=== PATIENT | female | born 2000 | race Caucasian/White ===

== ENCOUNTER 2023-02-03 07:27 | Inpatient (IN) ==
--- NOTE | 2023-02-03 07:45 | History & Physical Report ---
Date of Service February 03, 2023 Assessment & Plan (1) Encounter for induction of labor: (2) Gestational diabetes: (3) Hepatitis B surface antigen positive: (4) Hypothyroidism: Plan Will admit patient to L&D for induction of labor Patient comfortable. VSS. 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 She is getting regular f/u for this with icer hand. She is currently at IUP 39 3/7 WGA with an IMER 02/07/23 as determined by uncertain LMP (IMER of 01/29/23 +/- 21 days by Ultrasound) who is here for IOL due to diet-controlled GDM and obesity affecting (BMI > 40). She had a Meyers balloon placed in OB clinic yesterday, which fell out this morning after arriving at L&D (+) movement (-) contractions (-) fluid loss (-) bloody show External FHT and external uterine monitors used * Category 1 tracing * Moderate FHT variability. Had regular appointments since 1st trimester. OB Labs: Blood Type O Negative 07/31/22 Antibody Screen NEGATIVE 11/16/22 Hemoglobin 11.4 g/dl (12.0-16.0) L 11/16/22 Hematocrit 33.8 % (37.0-47.0) L 11/16/22 Mean Corpuscular Volume 82.0 fL (80.0-100.0) 07/31/22 Platelet Count 221 K/uL (130-400) 07/31/22 Rubella IgG Antibody Immune (Immune) 07/13/22 Rapid Plasma Reagin Nonreactive (Nonreactive) 07/13/22 Hepatitis B Surface Antigen. NON-REACTIVE (NON-REACTIVE) 07/13/22 Hepatitis C Antibody (EIA) NON-REACTIVE (NON-REACTIVE) 07/13/22 HIV (1&2) Ag and Ab Confirmation NON-REACTIVE (NON-REACTIVE) 07/13/22 Maternal Serum Alpha Fetoprotein 21.7 ng/mL 08/24/22 OB Optional Labs: Chlamydia trachomatis RNA Not Detected (NotDetected) 07/13/22 Neisseria gonorrhoeae RNA Not Detected (NotDetected) 07/13/22 Thyroid Stimulating Hormone (TSH) 1.868 uIu/ml (0.300-4.500) 01/26/23 Alpha Fetoprotein Triple Screen SEE NOTE 08/24/22 Labs Reviewed: low risk cfdna neg cf/sma afp neg GBS neg Rh neg Rhogam given 07/31/22 in ED - spotting rhogam given 11/16/22 Allergies Allergy/AdvReac Type Severity Reaction Status Date / Time No Known Allergies Allergy Verified 02/03/23 08:35 Home Medications Medication Instructions Recorded Confirmed Type prenat.vits,nam,rmw-etod-ahqks 1 tab PO DAILY 07/06/22 02/03/23 History acetone (urine) test (Ketone Urine #50 ea 09/13/22 02/02/23 Rx Test strips) blood sugar diagnostic (OneTouch #150 ea 09/13/22 02/02/23 Rx Verio test strips) blood-glucose meter (OneTouch #1 ea 09/13/22 02/02/23 Rx Verio Reflect Meter) lancets 33 gauge #150 ea 09/13/22 02/02/23 Rx levothyroxine 175 mcg tablet 175 mcg PO DAILY #90 tabs 10/29/22 02/03/23 Rx aspirin 81 mg capsule 81 mg PO DAILY 02/02/23 02/03/23 History Patient History Medical History Hemorrhagic nasal discharge History of COVID-19 Morbid obesity Nasal hemorrhage Ovarian cyst, right Prediabetes Surgical History H/O wisdom tooth extraction History of placement of ear tubes S/P ovarian cystectomy S/P tonsillectomy and adenoidectomy Family History Grandmother (Paternal) Cardiac disorder Hypertension Father Hypertension Unknown Breast cancer Other No family history of adverse response to anesthesia Denies family history of Ovarian cancer Colorectal cancer Social History Smoking Status: Never smoker Second Hand Exposure: No; Do You Dip or Chew Tobacco: No; Hx Alcohol Use: No Hx Substance Use: No Preferred Language: [place]ian Communication Ability: Effective Visual Impairment: Partially Limited Meter Attendant Required: No Beliefs That Will Affect Care: None marital status: Single marital status details: Heidy Block - Mother- [phone] Current Living Situation: Significant Other Current Living Situation Comment: lives with [place] current occupational status: employed current occupation: [employer] Other Information That Helps Us Care for You: No Feels Safe at Home: Yes Safety Concerns: Feels Safe At This Time 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 Denies shortness of breath or respiratory difficulty. no chest pain and no palpitations no dysuria no headache(s) Physical Exam Physical Exam: General: Alert, oriented x3. Afebrile. No acute distress. Cardiac: Regular rate and rhythm. Respiratory: No increased work of breathing. Symmetrical chest rise. No respiratory distress. Abdomen: Gravid; FHR baseline 150-155 bpm; Position: Cephalic Pelvic: 4 / 70 / -[address] Vyas Supervising Physician Co-Signing Physician Notes Resident Physician Supervision Note: I was present with Dr. Nunez during the history and exam. I discussed the case with the resident and agree with the findings and plan as documented in the note. Any exceptions or clarifications are listed here: 22yo @ 39 3/, IOL for obesity, with GDM, Hep B +, hypothyroidism. Mira fell out this mo rning. Cervix 4/70/-2, soft/mid. Will start pitocin. Hourly glucose checks while in labor. FHT Cat 1 [place] rare. She is agreeable with plan. OK for epidural when she desires. Documented By: Shavonne Vyas DO Resident Activity Tracking Resident Involvement: Resident Care Provided Care Provided: OB Delivery
[2023-02-03] MEDS ORDERED: OXYTOCIN 30 UNITS/500 ML BAG IV PRN ×2 (07:58)
[2023-02-03] MEDS ORDERED: LIDOCAINE 1% LOCAL 20 ML VIAL INFIL PRN (07:58)
[2023-02-03 08:42] LABS: Hemoglobin 11.2 g/dl (12.0-16.0); Mean Corpuscular Hemoglobin 27.5 pg (25.0-34.0); Mean Corpuscular Hgb Conc 33.9 g/dL (32.0-36.0); Mean Corpuscular Volume 80.9 fL (80.0-100.0); Mean Platelet Volume 9.3 fL (9.4-12.4); Platelet Count 228 K/uL (130-400); RDW Coefficient of Variation 15.1 % (11.5-14.5); RDW Standard Deviation 43.8 fL (36.4-46.3); Red Blood Count 4.08 M/uL (4.20-5.40); White Blood Count 12.16 K/ul (4.8-10.8)
[2023-02-03] MEDS: LACTATED RINGER'S 1,000 ML IV PRN ×3 (10:11→20:15)
[2023-02-03] MEDS ORDERED: SODIUM CHLORIDE 0.9% PF INJ 10 ML VIAL ONE (11:54)
[2023-02-03] MEDS ORDERED: fentaNYL citrate PF 100 MCG/2 ML VIAL ONE (11:54)
[2023-02-03] MEDS ORDERED: ePHEDrine sulfate 50 MG/ML AMP ONE (11:54)
[2023-02-03] MEDS ORDERED: BUPIVACAINE 0.25% PF 30 ML VIAL ONE (11:55)
[2023-02-03] MEDS ORDERED: fentANYL 2 MCG/ML BUPIVacaine 0.125%-NSS 100ML BAG ONE ×2 (11:55→21:01)
[2023-02-03] MEDS ORDERED: LIDOCAINE 2%/EPINEPHRINE 1:200,000 20 ML PF ONE (11:55)
[2023-02-03] MEDS ORDERED: ROPIVACAINE 0.5% PF 5 MG/ML 20 ML VIAL EPI PRN (12:45)
[2023-02-03] MEDS ORDERED: ePHEDrine sulfate 50 MG/ML AMP IV PRN (12:45)
[2023-02-03] MEDS ORDERED: fentaNYL citrate PF 100 MCG/2 ML VIAL EPI PRN (12:45)
[2023-02-03] MEDS ORDERED: ONDANSETRON INJ 2 MG/ML 2 ML VIAL IV PRN (12:45)
[2023-02-03] MEDS ORDERED: BUPIVACAINE 0.25% PF 30 ML VIAL EPI PRN (12:45)
[2023-02-03] MEDS ORDERED: BUPIVACAINE 0.25% PF 30 ML VIAL EPI STA (12:45)
[2023-02-03] MEDS ORDERED: fentANYL 2 MCG/ML BUPIVacaine 0.125%-NSS 100ML BAG EPI PRN (12:45)
[2023-02-03] MEDS ORDERED: LIDOCAINE 2%/EPINEPHRINE 1:200,000 20 ML PF EPI STA (12:45)
[2023-02-03] MEDS ORDERED: SODIUM CHLORIDE 0.9% PF INJ 10 ML VIAL EPI PRN (12:45)
[2023-02-03] MEDS ORDERED: NALOXONE HCL 1 MG in SODIUM CHLORIDE 0.9% 1,000 ML IV PRN (12:45)
[2023-02-03] MEDS ORDERED: fentaNYL citrate PF 100 MCG/2 ML VIAL EPI STA (12:45)
[2023-02-03] MEDS ORDERED: NALOXONE HCL 0.4 MG/1 ML VIAL/CARP IV PRN (12:45)
[2023-02-03] MEDS ORDERED: LIDOCAINE 2% MPF LOCAL 5 ML VIAL EPI PRN (12:45)
[2023-02-03] MEDS ORDERED: NALBUPHINE HCL 5 MG in SYRINGE 0 ML IV PRN (12:45)
[2023-02-03] MEDS ORDERED: SODIUM CHLORIDE 0.9% PF INJ 10 ML VIAL EPI STA (12:45)
[2023-02-03] MEDS ORDERED: diphenhydrAMINE 50 MG/ML VIAL IV PRN (12:45)
--- NOTE | 2023-02-03 18:11 | Labor Progress Brief Note ---
Date of Service February 03, 2023 Subjective Comfortable with epidural. FHT Cat 1 [place] Q 2 SVE 5/80/-2 AROM clear fluid. Continue labor. Assessment & Plan Admission and Anticipated Discharge Date Admission Date: February 03, 2023 Results & Data Vital Signs (Past 12 Hours) Vital Signs Temp Pulse Resp BP Pulse Ox 02/03/23 18:08 93 H 02/03/23 18:03 99 02/03/23 18:03 85 02/03/23 17:58 99 02/03/23 17:58 83 02/03/23 17:56 81 02/03/23 17:56 131/71 02/03/23 17:53 99 02/03/23 17:53 84 02/03/23 17:48 99 02/03/23 17:48 86 02/03/23 17:43 99 02/03/23 17:43 94 H 02/03/23 17:42 86 02/03/23 17:42 128/78 02/03/23 17:38 99 02/03/23 17:38 91 H 02/03/23 17:33 99 02/03/23 17:33 91 H 02/03/23 17:28 100 02/03/23 17:28 91 H 02/03/23 17:27 86 02/03/23 17:27 154/90 H 02/03/23 17:23 100 02/03/23 17:23 115 H 02/03/23 17:18 99 02/03/23 17:18 81 02/03/23 17:13 99 02/03/23 17:13 86 02/03/23 17:12 92 H 02/03/23 17:12 135/84 02/03/23 17:08 100 02/03/23 17:08 93 H 02/03/23 17:03 99 02/03/23 17:03 100 H 02/03/23 16:58 100 02/03/23 16:58 83 02/03/23 16:56 20 02/03/23 16:56 20 02/03/23 16:56 82 02/03/23 16:56 137/82 02/03/23 16:53 100 02/03/23 16:53 99 H 02/03/23 16:48 100 02/03/23 16:48 88 02/03/23 16:43 100 02/03/23 16:43 100 H 02/03/23 16:42 92 H 02/03/23 16:42 130/88 02/03/23 16:38 99 02/03/23 16:38 90 02/03/23 16:33 99 02/03/23 16:33 105 H 02/03/23 16:28 100 02/03/23 16:28 90 02/03/23 16:26 90 02/03/23 16:26 133/71 02/03/23 16:23 100 02/03/23 16:23 88 02/03/23 16:18 100 02/03/23 16:18 88 02/03/23 16:13 100 02/03/23 16:13 93 H 02/03/23 16:11 93 H 02/03/23 16:11 139/69 02/03/23 16:08 100 02/03/23 16:08 107 H 02/03/23 16:03 100 02/03/23 16:03 81 02/03/23 15:58 100 02/03/23 15:58 93 H 02/03/23 15:55 18 02/03/23 15:55 18 02/03/23 15:55 83 02/03/23 15:55 125/66 02/03/23 15:53 100 02/03/23 15:53 87 02/03/23 15:48 99 02/03/23 15:48 81 02/03/23 15:43 99 02/03/23 15:43 84 02/03/23 15:40 75 02/03/23 15:40 120/61 02/03/23 15:38 100 02/03/23 15:38 96 H 02/03/23 15:33 100 02/03/23 15:33 77 02/03/23 15:28 100 02/03/23 15:28 92 H 02/03/23 15:25 93 H 02/03/23 15:25 114/58 L 02/03/23 15:23 100 02/03/23 15:23 75 02/03/23 15:18 100 02/03/23 15:18 84 02/03/23 15:13 100 02/03/23 15:13 81 02/03/23 15:11 82 02/03/23 15:11 124/72 02/03/23 15:08 100 02/03/23 15:08 76 02/03/23 15:03 100 02/03/23 15:03 77 02/03/23 14:58 100 02/03/23 14:58 86 02/03/23 14:57 20 02/03/23 14:57 36.5 C 20 02/03/23 14:57 78 02/03/23 14:57 123/62 02/03/23 14:53 100 02/03/23 14:53 73 02/03/23 14:48 100 02/03/23 14:48 85 02/03/23 14:43 100 02/03/23 14:43 86 02/03/23 14:42 75 02/03/23 14:42 122/65 02/03/23 14:38 100 02/03/23 14:38 81 02/03/23 14:33 100 02/03/23 14:33 78 02/03/23 14:28 100 02/03/23 14:28 89 02/03/23 14:25 86 02/03/23 14:25 100/58 L 02/03/23 14:23 100 02/03/23 14:23 77 02/03/23 14:18 100 02/03/23 14:18 73 02/03/23 14:13 100 02/03/23 14:13 73 02/03/23 14:11 78 02/03/23 14:11 104/58 L 02/03/23 14:08 100 02/03/23 14:08 91 H 02/03/23 14:03 100 02/03/23 14:03 78 02/03/23 13:58 100 02/03/23 13:58 71 02/03/23 13:57 18 02/03/23 13:57 18 02/03/23 13:57 75 02/03/23 13:57 112/63 02/03/23 13:53 100 02/03/23 13:53 77 02/03/23 13:48 100 02/03/23 13:48 85 02/03/23 13:43 100 02/03/23 13:43 152 H 02/03/23 13:41 86 02/03/23 13:41 108/64 02/03/23 13:38 100 02/03/23 13:38 97 H 02/03/23 13:33 100 02/03/23 13:33 71 02/03/23 13:28 100 02/03/23 13:28 71 02/03/23 13:27 67 02/03/23 13:27 125/65 02/03/23 13:23 100 02/03/23 13:23 74 02/03/23 13:18 100 02/03/23 13:18 75 02/03/23 13:13 100 02/03/23 13:13 73 02/03/23 13:11 83 02/03/23 13:11 102/55 L 02/03/23 13:08 100 02/03/23 13:08 76 02/03/23 13:03 100 02/03/23 13:03 75 02/03/23 12:58 100 02/03/23 12:58 94 H 02/03/23 12:55 18 02/03/23 12:55 18 02/03/23 12:55 92 H 02/03/23 12:55 116/65 02/03/23 12:53 100 02/03/23 12:53 84 02/03/23 12:53 88 02/03/23 12:53 119/62 02/03/23 12:48 100 02/03/23 12:48 90 02/03/23 12:45 89 02/03/23 12:45 120/59 L 02/03/23 12:43 100 02/03/23 12:43 93 H 02/03/23 12:43 136/67 02/03/23 12:41 81 02/03/23 12:41 133/77 02/03/23 12:39 86 02/03/23 12:39 139/80 02/03/23 12:38 100 02/03/23 12:38 91 H 02/03/23 12:37 91 H 02/03/23 12:37 138/83 02/03/23 12:33 100 02/03/23 12:33 97 H 02/03/23 12:28 98 02/03/23 12:28 94 H 02/03/23 12:23 100 02/03/23 12:23 86 02/03/23 12:18 98 02/03/23 12:18 77 02/03/23 11:00 18 02/03/23 11:00 36.5 C 18 02/03/23 11:00 81 02/03/23 11:00 112/71 02/03/23 08:02 107 H 02/03/23 08:02 137/81 02/03/23 07:40 36.7 C 18 02/03/23 07:38 36.7 C 123 H 18 133/88 Coding Level of Care Code None
--- NOTE | 2023-02-03 18:54 | Anesthesiology Consultation ---
Date of Service February 03, 2023 Assessment & Plan Chart Review Chart Review: Patient NOT seen in Pre Admission Testing and Acceptable Risk for Labor Epidural Consults Requested none ASA ASA2 Proposed Anesthesia Anesthesia Type: Labor Epidural Risk / Benefits Reviewed With: PT / POA / Parent / Guardian, Accepts Plan and Informed Consent Obtained History Height/Weight Height: 5 ft 9 in Weight: 140.614 kg Allergies Allergy/AdvReac Type Severity Reaction Status Date / Time No Known Allergies Allergy Verified 02/03/23 08:35 Medications Home Medications Medication Instructions Recorded Confirmed Last Taken prenat.vits,nam,vuo-dzgh-wegyc 1 tab PO DAILY 07/06/22 02/03/23 02/02/23 acetone (urine) test (Ketone Urine #50 ea 09/13/22 02/02/23 Unknown Test strips) blood sugar diagnostic (OneTouch #150 ea 09/13/22 02/02/23 Unknown Verio test strips) blood-glucose meter (OneTouch #1 ea 09/13/22 02/02/23 Unknown Verio Reflect Meter) lancets 33 gauge #150 ea 09/13/22 02/02/23 Unknown levothyroxine 175 mcg tablet 175 mcg PO DAILY #90 tabs 10/29/22 02/03/23 02/02/23 aspirin 81 mg capsule 81 mg PO DAILY 02/02/23 02/03/23 02/02/23 Active Medications Generic Name Dose Route Start Last Admin Trade Name Freq PRN Reason Stop Dose Admin Oxytocin 30 units in 500 mls @ 17 mls/hr 02/03/23 07:58 02/03/23 16:00 Pitocin IV 02/05/23 07:57 1.02 units/hr .Q24H PRN 17 mls/hr Labor Induction/Augmentation Titration Protocol 1.02 UNITS/HR Lactated Ringer's 1,000 mls @ 125 mls/hr 02/03/23 07:58 02/03/23 12:37 Lr IV 02/05/23 07:57 125 mls/hr .Q8H PRN Administration L&D Protocol Protocol Past Medical History Medical History Hemorrhagic nasal discharge History of COVID-19 Morbid obesity Nasal hemorrhage Ovarian cyst, right Prediabetes Exercise / Class Metabolic Activity II 4-5 Yardwork/Stairs/Walk up hill Past Family History Family History Grandmother (Paternal) Cardiac disorder Hypertension Father Hypertension Unknown Breast cancer Other No family history of adverse response to anesthesia Denies family history of Ovarian cancer Colorectal cancer Past Surgical History Surgical History H/O wisdom tooth extraction History of placement of ear tubes S/P ovarian cystectomy S/P tonsillectomy and adenoidectomy Past Anesthesia History No Hx of Anesthesia Complications and No Family Hx of Anesthesia Complications History of PONV No Hx of PONV and No Hx of Motion Sickness Social History Smoking Status: Never smoker Do You Dip or Chew Tobacco: No Hx Alcohol Use: No Hx Substance Use: No substance use type: does not use Physical Exam Vital Signs Last Vital Signs Temp 36.5 C 02/03/23 14:57 Pulse 85 02/03/23 18:48 Resp 16 02/03/23 17:56 BP 134/73 02/03/23 18:42 Pulse Ox 98 02/03/23 18:48 ENMT Mouth: no dentition abnormality Thyromental Distance: > or= 3.5 Finger Breadths Mallampati Class: II Neck normal visual inspection Respiratory normal respiratory effort Auscultation: lungs clear to auscultation bilaterally Cardiovascular Rate/Rhythm: regular rate and regular rhythm Psychiatric Orientation: alert Testing Laboratory Results 02/03/23 08:25 Blood Type O Negative 02/03/23 08:25 Antibody Screen NEGATIVE 02/03/23 08:25 02/03/23 02/03/23 02/03/23 18:04 17:03 16:02 POC Glucose 81 94 104 H 02/03/23 02/03/23 02/03/23 15:04 14:03 12:52 POC Glucose 96 75 79 02/03/23 09:42 POC Glucose 93
[2023-02-03] MEDS ORDERED: ACETAMINOPHEN 500 MG TAB PO PRN (20:38)
--- NOTE | 2023-02-03 22:40 | Anesthesia Procedure Note ---
Date of Service February 03, 2023 Anesthesia Post Epidural Note Vital Signs Vital Signs: Temp Pulse Resp BP Pulse Ox 37.0 C 83 18 122/60 98 02/03/23 21:30 02/03/23 22:38 02/03/23 22:30 02/03/23 22:27 02/03/23 22:38 Pain Intensity Perineal: Pain Intensity: 5 Notes Mental Status: alert / awake / arousable Nausea / Vomiting: adequately controlled Pain: adequately controlled Airway Patency, RR, SpO2: stable & adequate BP & HR: stable & adequate Hydration State: stable & adequate Neuraxial Anesthesia: was administered and sensory block is resolving Anesthetic Complications: no major complications apparent and Pt Satisfied with anesthetic care Epidural: Removed without complications and With tip intact
[2023-02-04] MEDS ORDERED: NURSING L&D Epidural Breakthrough Pain Update ONE (00:16)
--- NOTE | 2023-02-04 01:42 | Labor Progress Brief Note ---
Date of Service February 04, 2023 Subjective Epidural. FHT Cat 1 [place] Q 2 SVE 8/100/-1 IUPC/FSE in place - placed earlier. Continue pitocin and continue labor. Assessment & Plan Admission and Anticipated Discharge Date Admission Date: February 03, 2023 Results & Data Vital Signs (Past 12 Hours) Vital Signs Temp Pulse Resp BP Pulse Ox 02/04/23 01:38 73 99 02/04/23 01:33 75 99 02/04/23 01:28 86 100/53 L 100 02/04/23 01:23 96 H 100 02/04/23 01:18 108 H 100 02/04/23 01:13 88 100 02/04/23 01:08 91 H 100 02/04/23 01:03 91 H 99 02/04/23 00:58 100 02/04/23 00:58 93 H 02/04/23 00:58 93 H 122/60 02/04/23 00:53 93 H 100 02/04/23 00:48 105 H 100 02/04/23 00:43 100 H 100 02/04/23 00:38 120 H 99 02/04/23 00:33 100 H 99 02/04/23 00:30 18 02/04/23 00:30 18 02/04/23 00:28 99 02/04/23 00:28 81 02/04/23 00:28 83 127/82 02/04/23 00:23 74 98 02/04/23 00:18 76 100 02/04/23 00:13 77 99 02/04/23 00:08 77 100 02/04/23 00:03 79 99 02/04/23 00:00 18 02/04/23 00:00 18 02/03/23 23:58 100 02/03/23 23:58 82 02/03/23 23:57 76 02/03/23 23:57 139/85 02/03/23 23:53 100 02/03/23 23:53 87 02/03/23 23:48 99 02/03/23 23:48 76 02/03/23 23:43 100 02/03/23 23:43 86 02/03/23 23:38 99 02/03/23 23:38 79 02/03/23 23:33 99 02/03/23 23:33 88 02/03/23 23:30 18 02/03/23 23:30 18 02/03/23 23:28 100 02/03/23 23:28 86 02/03/23 23:23 99 02/03/23 23:23 75 02/03/23 23:18 99 02/03/23 23:18 78 02/03/23 23:13 99 02/03/23 23:13 87 02/03/23 23:08 99 02/03/23 23:08 78 02/03/23 23:03 99 02/03/23 23:03 90 02/03/23 23:00 18 02/03/23 23:00 18 02/03/23 22:58 100 02/03/23 22:58 93 H 02/03/23 22:57 96 H 02/03/23 22:57 124/77 02/03/23 22:53 100 02/03/23 22:53 101 H 02/03/23 22:48 99 02/03/23 22:48 97 H 02/03/23 22:43 98 02/03/23 22:43 86 02/03/23 22:38 98 02/03/23 22:38 83 02/03/23 22:33 98 02/03/23 22:33 80 02/03/23 22:30 18 02/03/23 22:30 18 02/03/23 22:28 98 02/03/23 22:28 87 02/03/23 22:27 94 H 02/03/23 22:27 122/60 02/03/23 22:23 97 02/03/23 22:23 79 02/03/23 22:18 98 02/03/23 22:18 80 02/03/23 22:13 98 02/03/23 22:13 79 02/03/23 22:08 98 02/03/23 22:08 77 02/03/23 22:03 98 02/03/23 22:03 82 02/03/23 22:00 18 02/03/23 22:00 18 02/03/23 21:58 98 02/03/23 21:58 77 02/03/23 21:58 120/57 L 02/03/23 21:53 97 02/03/23 21:53 83 02/03/23 21:48 97 02/03/23 21:48 82 02/03/23 21:43 98 02/03/23 21:43 81 02/03/23 21:38 98 02/03/23 21:38 77 02/03/23 21:33 99 02/03/23 21:33 83 02/03/23 21:30 18 02/03/23 21:30 37.0 C 18 02/03/23 21:28 100 02/03/23 21:28 82 02/03/23 21:26 83 02/03/23 21:26 119/56 L 02/03/23 21:23 99 02/03/23 21:23 81 02/03/23 21:18 100 02/03/23 21:18 75 02/03/23 21:13 100 02/03/23 21:13 77 02/03/23 21:12 80 02/03/23 21:12 115/55 L 02/03/23 21:08 99 02/03/23 21:08 78 02/03/23 21:03 100 02/03/23 21:03 78 02/03/23 21:00 18 02/03/23 21:00 18 02/03/23 20:58 99 02/03/23 20:58 81 02/03/23 20:56 83 02/03/23 20:56 117/57 L 02/03/23 20:53 99 02/03/23 20:53 84 02/03/23 20:48 100 02/03/23 20:48 95 H 02/03/23 20:43 100 02/03/23 20:43 89 02/03/23 20:42 81 02/03/23 20:42 128/68 02/03/23 20:38 100 02/03/23 20:38 92 H 02/03/23 20:33 100 02/03/23 20:33 88 02/03/23 20:30 18 02/03/23 20:30 18 02/03/23 20:28 100 02/03/23 20:28 95 H 02/03/23 20:25 102 H 02/03/23 20:25 142/76 H 02/03/23 20:23 100 02/03/23 20:23 93 H 02/03/23 20:18 98 02/03/23 20:18 116 H 02/03/23 20:13 98 02/03/23 20:13 94 H 02/03/23 20:11 100 H 02/03/23 20:11 142/86 H 02/03/23 20:08 99 02/03/23 20:08 91 H 02/03/23 20:03 100 02/03/23 20:03 78 02/03/23 20:00 18 02/03/23 20:00 18 02/03/23 19:58 100 02/03/23 19:58 91 H 02/03/23 19:55 89 02/03/23 19:55 129/77 02/03/23 19:53 100 02/03/23 19:53 87 02/03/23 19:48 99 02/03/23 19:48 84 02/03/23 19:43 100 02/03/23 19:43 94 H 02/03/23 19:41 88 02/03/23 19:41 135/69 02/03/23 19:38 99 02/03/23 19:38 87 02/03/23 19:33 99 02/03/23 19:33 82 02/03/23 19:30 36.7 C 18 02/03/23 19:30 18 02/03/23 19:30 36.7 C 18 02/03/23 19:28 99 02/03/23 19:28 81 02/03/23 19:25 88 02/03/23 19:25 135/68 02/03/23 19:23 99 02/03/23 19:23 85 02/03/23 19:18 99 02/03/23 19:18 93 H 02/03/23 19:13 99 02/03/23 19:13 80 02/03/23 19:11 82 02/03/23 19:11 137/75 02/03/23 19:08 99 02/03/23 19:08 93 H 02/03/23 19:03 99 02/03/23 19:03 91 H 02/03/23 18:58 99 02/03/23 18:58 78 02/03/23 18:57 78 02/03/23 18:57 141/75 H 02/03/23 18:53 99 02/03/23 18:53 78 02/03/23 18:48 98 02/03/23 18:48 85 02/03/23 18:43 98 02/03/23 18:43 78 02/03/23 18:42 78 02/03/23 18:42 134/73 02/03/23 18:38 98 02/03/23 18:38 80 02/03/23 18:33 99 02/03/23 18:33 87 02/03/23 18:28 99 02/03/23 18:28 84 02/03/23 18:26 83 02/03/23 18:26 126/67 02/03/23 18:23 99 02/03/23 18:23 79 02/03/23 18:18 99 02/03/23 18:18 91 H 02/03/23 18:13 99 02/03/23 18:13 89 02/03/23 18:10 94 H 02/03/23 18:10 140/78 02/03/23 18:08 98 02/03/23 18:08 93 H 02/03/23 18:03 99 02/03/23 18:03 85 02/03/23 17:58 99 02/03/23 17:58 83 02/03/23 17:56 16 02/03/23 17:56 16 02/03/23 17:56 81 02/03/23 17:56 131/71 02/03/23 17:53 99 02/03/23 17:53 84 02/03/23 17:48 99 02/03/23 17:48 86 02/03/23 17:43 99 02/03/23 17:43 94 H 02/03/23 17:42 86 02/03/23 17:42 128/78 02/03/23 17:38 99 02/03/23 17:38 91 H 02/03/23 17:33 99 02/03/23 17:33 91 H 02/03/23 17:28 100 02/03/23 17:28 91 H 02/03/23 17:27 86 02/03/23 17:27 154/90 H 02/03/23 17:23 100 02/03/23 17:23 115 H 02/03/23 17:18 99 02/03/23 17:18 81 02/03/23 17:13 99 02/03/23 17:13 86 02/03/23 17:12 92 H 02/03/23 17:12 135/84 02/03/23 17:08 100 02/03/23 17:08 93 H 02/03/23 17:03 99 02/03/23 17:03 100 H 02/03/23 16:58 100 02/03/23 16:58 83 02/03/23 16:56 20 02/03/23 16:56 20 02/03/23 16:56 82 02/03/23 16:56 137/82 02/03/23 16:53 100 02/03/23 16:53 99 H 02/03/23 16:48 100 02/03/23 16:48 88 02/03/23 16:43 100 02/03/23 16:43 100 H 02/03/23 16:42 92 H 02/03/23 16:42 130/88 02/03/23 16:38 99 02/03/23 16:38 90 02/03/23 16:33 99 02/03/23 16:33 105 H 02/03/23 16:28 100 02/03/23 16:28 90 02/03/23 16:26 90 02/03/23 16:26 133/71 02/03/23 16:23 100 02/03/23 16:23 88 02/03/23 16:18 100 02/03/23 16:18 88 02/03/23 16:13 100 02/03/23 16:13 93 H 02/03/23 16:11 93 H 02/03/23 16:11 139/69 02/03/23 16:08 100 02/03/23 16:08 107 H 02/03/23 16:03 100 02/03/23 16:03 81 02/03/23 15:58 100 02/03/23 15:58 93 H 02/03/23 15:55 18 02/03/23 15:55 18 02/03/23 15:55 83 02/03/23 15:55 125/66 02/03/23 15:53 100 02/03/23 15:53 87 02/03/23 15:48 99 02/03/23 15:48 81 02/03/23 15:43 99 02/03/23 15:43 84 02/03/23 15:40 75 02/03/23 15:40 120/61 02/03/23 15:38 100 02/03/23 15:38 96 H 02/03/23 15:33 100 02/03/23 15:33 77 02/03/23 15:28 100 02/03/23 15:28 92 H 02/03/23 15:25 93 H 02/03/23 15:25 114/58 L 02/03/23 15:23 100 02/03/23 15:23 75 02/03/23 15:18 100 02/03/23 15:18 84 02/03/23 15:13 100 02/03/23 15:13 81 02/03/23 15:11 82 02/03/23 15:11 124/72 02/03/23 15:08 100 02/03/23 15:08 76 02/03/23 15:03 100 02/03/23 15:03 77 02/03/23 14:58 100 02/03/23 14:58 86 02/03/23 14:57 20 02/03/23 14:57 36.5 C 20 02/03/23 14:57 78 02/03/23 14:57 123/62 02/03/23 14:53 100 02/03/23 14:53 73 02/03/23 14:48 100 02/03/23 14:48 85 02/03/23 14:43 100 02/03/23 14:43 86 02/03/23 14:42 75 02/03/23 14:42 122/65 02/03/23 14:38 100 02/03/23 14:38 81 02/03/23 14:33 100 02/03/23 14:33 78 02/03/23 14:28 100 02/03/23 14:28 89 02/03/23 14:25 86 02/03/23 14:25 100/58 L 02/03/23 14:23 100 02/03/23 14:23 77 02/03/23 14:18 100 02/03/23 14:18 73 02/03/23 14:13 100 02/03/23 14:13 73 02/03/23 14:11 78 02/03/23 14:11 104/58 L 02/03/23 14:08 100 02/03/23 14:08 91 H 02/03/23 14:03 100 02/03/23 14:03 78 02/03/23 13:58 100 02/03/23 13:58 71 02/03/23 13:57 18 02/03/23 13:57 18 02/03/23 13:57 75 02/03/23 13:57 112/63 02/03/23 13:53 100 02/03/23 13:53 77 02/03/23 13:48 100 02/03/23 13:48 85 02/03/23 13:43 100 02/03/23 13:43 152 H Coding Level of Care Code None
--- NOTE | 2023-02-04 03:10 | Labor Progress Brief Note ---
Date of Service February 04, 2023 Subjective Occasional feeling of pressure. FHT Cat 1 [place] Q 2 SVE 10/100/+1 Will labor down - when she feels urge to push, will begin pushing. Assessment & Plan Admission and Anticipated Discharge Date Admission Date: February 03, 2023 Results & Data Vital Signs (Past 12 Hours) Vital Signs Temp Pulse Resp BP Pulse Ox 02/04/23 03:03 94 H 100 02/04/23 02:58 87 115/65 100 02/04/23 02:53 89 100 02/04/23 02:48 84 100 02/04/23 02:45 85 118/53 L 02/04/23 02:43 92 H 100 02/04/23 02:38 89 100 02/04/23 02:33 91 H 100 02/04/23 02:28 86 108/56 L 99 02/04/23 02:23 93 H 100 02/04/23 02:18 84 98 02/04/23 02:13 92 H 105/58 L 99 02/04/23 02:08 78 98 02/04/23 02:03 75 98 02/04/23 02:00 18 02/04/23 02:00 18 02/04/23 01:58 78 104/55 L 98 02/04/23 01:53 76 98 02/04/23 01:48 74 99 02/04/23 01:45 80 103/58 L 02/04/23 01:43 75 99 02/04/23 01:38 73 99 02/04/23 01:33 75 99 02/04/23 01:30 18 02/04/23 01:30 36.8 C 18 02/04/23 01:28 86 100/53 L 100 02/04/23 01:23 96 H 100 02/04/23 01:18 108 H 100 02/04/23 01:13 88 100 02/04/23 01:08 91 H 100 02/04/23 01:03 91 H 99 02/04/23 00:58 100 02/04/23 00:58 93 H 02/04/23 00:58 93 H 122/60 02/04/23 00:53 93 H 100 02/04/23 00:48 105 H 100 02/04/23 00:43 100 H 100 02/04/23 00:38 120 H 99 02/04/23 00:33 100 H 99 02/04/23 00:30 18 02/04/23 00:30 18 02/04/23 00:28 99 02/04/23 00:28 81 02/04/23 00:28 83 127/82 02/04/23 00:23 74 98 02/04/23 00:18 76 100 02/04/23 00:13 77 99 02/04/23 00:08 77 100 02/04/23 00:03 79 99 02/04/23 00:00 18 02/04/23 00:00 18 02/03/23 23:58 100 02/03/23 23:58 82 02/03/23 23:57 76 02/03/23 23:57 139/85 02/03/23 23:53 100 02/03/23 23:53 87 02/03/23 23:48 99 02/03/23 23:48 76 02/03/23 23:43 100 02/03/23 23:43 86 02/03/23 23:38 99 02/03/23 23:38 79 02/03/23 23:33 99 02/03/23 23:33 88 02/03/23 23:30 18 02/03/23 23:30 18 02/03/23 23:28 100 02/03/23 23:28 86 02/03/23 23:23 99 02/03/23 23:23 75 02/03/23 23:18 99 02/03/23 23:18 78 02/03/23 23:13 99 02/03/23 23:13 87 02/03/23 23:08 99 02/03/23 23:08 78 02/03/23 23:03 99 02/03/23 23:03 90 02/03/23 23:00 18 02/03/23 23:00 18 02/03/23 22:58 100 02/03/23 22:58 93 H 02/03/23 22:57 96 H 02/03/23 22:57 124/77 02/03/23 22:53 100 02/03/23 22:53 101 H 02/03/23 22:48 99 02/03/23 22:48 97 H 02/03/23 22:43 98 02/03/23 22:43 86 02/03/23 22:38 98 02/03/23 22:38 83 02/03/23 22:33 98 02/03/23 22:33 80 02/03/23 22:30 18 02/03/23 22:30 18 02/03/23 22:28 98 02/03/23 22:28 87 02/03/23 22:27 94 H 02/03/23 22:27 122/60 02/03/23 22:23 97 02/03/23 22:23 79 02/03/23 22:18 98 02/03/23 22:18 80 02/03/23 22:13 98 02/03/23 22:13 79 02/03/23 22:08 98 02/03/23 22:08 77 02/03/23 22:03 98 02/03/23 22:03 82 02/03/23 22:00 18 02/03/23 22:00 18 02/03/23 21:58 98 02/03/23 21:58 77 02/03/23 21:58 120/57 L 02/03/23 21:53 97 02/03/23 21:53 83 02/03/23 21:48 97 02/03/23 21:48 82 02/03/23 21:43 98 02/03/23 21:43 81 02/03/23 21:38 98 02/03/23 21:38 77 02/03/23 21:33 99 02/03/23 21:33 83 02/03/23 21:30 18 02/03/23 21:30 37.0 C 18 02/03/23 21:28 100 02/03/23 21:28 82 02/03/23 21:26 83 02/03/23 21:26 119/56 L 02/03/23 21:23 99 02/03/23 21:23 81 02/03/23 21:18 100 02/03/23 21:18 75 02/03/23 21:13 100 02/03/23 21:13 77 02/03/23 21:12 80 02/03/23 21:12 115/55 L 02/03/23 21:08 99 02/03/23 21:08 78 02/03/23 21:03 100 02/03/23 21:03 78 02/03/23 21:00 18 02/03/23 21:00 18 02/03/23 20:58 99 02/03/23 20:58 81 02/03/23 20:56 83 02/03/23 20:56 117/57 L 02/03/23 20:53 99 02/03/23 20:53 84 02/03/23 20:48 100 02/03/23 20:48 95 H 02/03/23 20:43 100 02/03/23 20:43 89 02/03/23 20:42 81 02/03/23 20:42 128/68 02/03/23 20:38 100 02/03/23 20:38 92 H 02/03/23 20:33 100 02/03/23 20:33 88 02/03/23 20:30 18 02/03/23 20:30 18 02/03/23 20:28 100 02/03/23 20:28 95 H 02/03/23 20:25 102 H 02/03/23 20:25 142/76 H 02/03/23 20:23 100 02/03/23 20:23 93 H 02/03/23 20:18 98 02/03/23 20:18 116 H 02/03/23 20:13 98 02/03/23 20:13 94 H 02/03/23 20:11 100 H 02/03/23 20:11 142/86 H 02/03/23 20:08 99 02/03/23 20:08 91 H 02/03/23 20:03 100 02/03/23 20:03 78 02/03/23 20:00 18 02/03/23 20:00 18 02/03/23 19:58 100 02/03/23 19:58 91 H 02/03/23 19:55 89 02/03/23 19:55 129/77 02/03/23 19:53 100 02/03/23 19:53 87 02/03/23 19:48 99 02/03/23 19:48 84 02/03/23 19:43 100 02/03/23 19:43 94 H 02/03/23 19:41 88 02/03/23 19:41 135/69 02/03/23 19:38 99 02/03/23 19:38 87 02/03/23 19:33 99 02/03/23 19:33 82 02/03/23 19:30 36.7 C 18 02/03/23 19:30 18 02/03/23 19:30 36.7 C 18 02/03/23 19:28 99 02/03/23 19:28 81 02/03/23 19:25 88 02/03/23 19:25 135/68 02/03/23 19:23 99 02/03/23 19:23 85 02/03/23 19:18 99 02/03/23 19:18 93 H 02/03/23 19:13 99 02/03/23 19:13 80 02/03/23 19:11 82 02/03/23 19:11 137/75 02/03/23 19:08 99 02/03/23 19:08 93 H 02/03/23 19:03 99 02/03/23 19:03 91 H 02/03/23 18:58 99 02/03/23 18:58 78 02/03/23 18:57 78 02/03/23 18:57 141/75 H 02/03/23 18:53 99 02/03/23 18:53 78 02/03/23 18:48 98 02/03/23 18:48 85 02/03/23 18:43 98 02/03/23 18:43 78 02/03/23 18:42 78 02/03/23 18:42 134/73 02/03/23 18:38 98 02/03/23 18:38 80 02/03/23 18:33 99 02/03/23 18:33 87 02/03/23 18:28 99 02/03/23 18:28 84 02/03/23 18:26 83 02/03/23 18:26 126/67 02/03/23 18:23 99 02/03/23 18:23 79 02/03/23 18:18 99 02/03/23 18:18 91 H 02/03/23 18:13 99 02/03/23 18:13 89 02/03/23 18:10 94 H 02/03/23 18:10 140/78 02/03/23 18:08 98 02/03/23 18:08 93 H 02/03/23 18:03 99 02/03/23 18:03 85 02/03/23 17:58 99 02/03/23 17:58 83 02/03/23 17:56 16 02/03/23 17:56 16 02/03/23 17:56 81 02/03/23 17:56 131/71 02/03/23 17:53 99 02/03/23 17:53 84 02/03/23 17:48 99 02/03/23 17:48 86 02/03/23 17:43 99 02/03/23 17:43 94 H 02/03/23 17:42 86 02/03/23 17:42 128/78 02/03/23 17:38 99 02/03/23 17:38 91 H 02/03/23 17:33 99 02/03/23 17:33 91 H 02/03/23 17:28 100 02/03/23 17:28 91 H 02/03/23 17:27 86 02/03/23 17:27 154/90 H 02/03/23 17:23 100 02/03/23 17:23 115 H 02/03/23 17:18 99 02/03/23 17:18 81 02/03/23 17:13 99 02/03/23 17:13 86 02/03/23 17:12 92 H 02/03/23 17:12 135/84 02/03/23 17:08 100 02/03/23 17:08 93 H 02/03/23 17:03 99 02/03/23 17:03 100 H 02/03/23 16:58 100 02/03/23 16:58 83 02/03/23 16:56 20 02/03/23 16:56 20 02/03/23 16:56 82 02/03/23 16:56 137/82 02/03/23 16:53 100 02/03/23 16:53 99 H 02/03/23 16:48 100 02/03/23 16:48 88 02/03/23 16:43 100 02/03/23 16:43 100 H 02/03/23 16:42 92 H 02/03/23 16:42 130/88 02/03/23 16:38 99 02/03/23 16:38 90 02/03/23 16:33 99 02/03/23 16:33 105 H 02/03/23 16:28 100 02/03/23 16:28 90 02/03/23 16:26 90 02/03/23 16:26 133/71 02/03/23 16:23 100 02/03/23 16:23 88 02/03/23 16:18 100 02/03/23 16:18 88 02/03/23 16:13 100 02/03/23 16:13 93 H 02/03/23 16:11 93 H 02/03/23 16:11 139/69 02/03/23 16:08 100 02/03/23 16:08 107 H 02/03/23 16:03 100 02/03/23 16:03 81 02/03/23 15:58 100 02/03/23 15:58 93 H 02/03/23 15:55 18 02/03/23 15:55 18 02/03/23 15:55 83 02/03/23 15:55 125/66 02/03/23 15:53 100 02/03/23 15:53 87 02/03/23 15:48 99 02/03/23 15:48 81 02/03/23 15:43 99 02/03/23 15:43 84 02/03/23 15:40 75 02/03/23 15:40 120/61 02/03/23 15:38 100 02/03/23 15:38 96 H 02/03/23 15:33 100 02/03/23 15:33 77 02/03/23 15:28 100 02/03/23 15:28 92 H 02/03/23 15:25 93 H 02/03/23 15:25 114/58 L 02/03/23 15:23 100 02/03/23 15:23 75 02/03/23 15:18 100 02/03/23 15:18 84 02/03/23 15:13 100 02/03/23 15:13 81 02/03/23 15:11 82 02/03/23 15:11 124/72 Coding Level of Care Code None
[2023-02-04] MEDS: LACTATED RINGER'S 1,000 ML IV PRN (04:00)
--- NOTE | 2023-02-04 08:20 | Delivery Summary ---
Vaginal Delivery Summary Date of Service February 04, 2023 Vaginal Delivery Summary and 2nd Degree LAC Vaginal Delivery Summary: Pre-delivery diagnoses: 22yo @ 39 4/7, obesity, GDM, HepB+, hypothyroidism Post-delivery diagnoses: same Procedure: spontaneous vaginal delivery, repair of 2nd degree perineal laceration Surgeon: Shavonne Vyas DO Complications: none Findings: Viable . Apgars and weight pending, please see nursery records Estimated blood loss: 300ml Description of delivery: The patient progressed to complete with epidural anesthesia. She then began to push. She spontaneously vaginally delivered a viable from the cephalic presentation. The head delivered in JONO position. No nuchal noted. The anterior shoulder delivered, followed by the posterior shoulder, followed by the body. The baby was placed on mother's abdomen and a spontaneous cry was heard. Delayed cord clamping was employed, and the cord was doubly clamped and cut. Cord blood was obtained. The placenta was delivered spontaneously intact with a 3-vessel cord. The uterus and vagina were swept of clots and debris. IV pitocin was given. The uterus became firm. The cervix, vagina, and perineum were inspected and a 2nd degree perineal laceration was noted and repaired in standard fashion. Excellent hemostasis was observed. The mother and baby are recovering in stable and good condition in the room. Sponge, needle and instrument counts were correct x 2. Shavonne Vyas DO [facility] Vaginal Delivery Charge Vaginal Delivery Codes: 18725 global code for the antepartum, delivery, and post- Delivery Type Details: and 2nd Degree LAC
[2023-02-04] MEDS ORDERED: ACETAMINOPHEN 325 MG TAB PO PRN (08:25)
[2023-02-04] MEDS ORDERED: bisacodyL 10 MG SUPP PR PRN (08:25)
[2023-02-04] MEDS ORDERED: HYDROCORTISONE ACETATE 25 MG SUPP PR PRN (08:25)
[2023-02-04] MEDS ORDERED: OXYTOCIN 30 UNITS/500 ML BAG IV PRN (08:25)
[2023-02-04] MEDS ORDERED: BENZOCAINE 20% SPRY 85 APPLN/85 GM CAN EXT PRN (08:25)
[2023-02-04] MEDS ORDERED: oxyCODONE/ACETAMINOPHEN 5mg/325mg TAB PO PRN (08:25)
[2023-02-04] MEDS ORDERED: DIPHTHERIA/TETANUS/PERTUSSIS Vaccine (Tdap, Age 7+yrs) 0.5mL SYR/VL IM ONE (08:25)
[2023-02-04] MEDS: LEVOTHYROXINE SODIUM 175 MCG TABLET PO SCH (09:26)
[2023-02-04] MEDS: IBUPROFEN 600 MG TAB PO PRN ×2 (10:01→18:18)
--- NOTE | 2023-02-04 10:54 | Anesthesia Procedure Note ---
Date of Service February 04, 2023 Anesthesia Post Epidural Note Vital Signs Vital Signs: Temp Pulse Resp BP Pulse Ox 36.8 C 130 H 18 103/51 L 95 02/04/23 05:30 02/04/23 09:43 02/04/23 05:30 02/04/23 09:43 02/04/23 06:38 Pain Intensity Perineal: Pain Intensity: 0 Notes Mental Status: alert / awake / arousable and participated in evaluation Nausea / Vomiting: adequately controlled Pain: adequately controlled Airway Patency, RR, SpO2: stable & adequate BP & HR: stable & adequate Hydration State: stable & adequate Neuraxial Anesthesia: was administered and sensory block is resolving Anesthetic Complications: no major complications apparent Epidural: Removed without complications and With tip intact
[2023-02-04] MEDS: DOCUSATE SODIUM 100 MG CAP PO SCH (21:05)
[2023-02-05] MEDS: LEVOTHYROXINE SODIUM 175 MCG TABLET PO SCH (04:54)
[2023-02-05] MEDS: IBUPROFEN 600 MG TAB PO PRN ×2 (04:54→12:54)
[2023-02-05 06:46] LABS: Hematocrit (blood only) 25.8 % (37.0-47.0); Hemoglobin 8.7 g/dl (12.0-16.0)
--- NOTE | 2023-02-05 07:12 | Obstetrical Progress Note ---
Date of Service February 05, 2023 Assessment & Plan (1) care and examination immediately after delivery: Plan doing well stable. ok for dc home. f/u 6wks reviewed. instructions reviewed. bottle, rh neg, needs rhogam. ri. Day #:: 1 Subjective Ambulation: ambulating normally Voiding: no voiding problems Diet Tolerance:: regular diet Lochia:: Small Feeding Type:: bottle feeding no complaints. would like to go home. bottle feeding. no concerns re bleeding. Constitutional: + as per Subjective / HPI Physical Exam Constitutional WD/WN, vitals as above Respiratory normal respiratory effort, lungs clear to auscultation Cardiovascular Rate/Rhythm: regular rate and regular rhythm Gastrointestinal (Abdomen) Inspection/Auscultation: abdomen normal to inspection Percussion/Palpation: abdomen soft Fundus firm 2cm down Musculoskeletal nt calves no edema Neurologic grossly normal Psychiatric A+Ox3, euthymic affect Results & Data Vital Signs (Past 12 Hours) Vital Signs Temp Pulse Resp BP Pulse Ox O2 Del Method 02/05/23 04:44 97.7 F 90 18 133/84 99 Room Air 02/04/23 23:58 97.9 F 96 H 18 136/89 98 Room Air 02/04/23 20:09 98.1 F 106 H 20 129/79 98 Room Air
[2023-02-05] MEDS ORDERED: PRENATAL VITAMIN 1 TAB PO SCH (08:00)
[2023-02-05] MEDS: DOCUSATE SODIUM 100 MG CAP PO SCH (08:01)
[2023-02-05] MEDS ORDERED: bisacodyL 5 MG TABEC PO SCH (20:00)
== END 2023-02-05 15:20 | disposition home or self-care (01) | DRG 806 ==
LOC: 4S1 07:27 → 4E2 02-04 11:25